=== PATIENT | male | born 1995 | race Caucasian/White ===

== ENCOUNTER 2020-06-14 09:48 | Emergency (ER) | payer OTHER ==
[~2020-06-14] VITALS: Ht 167.6 cm; Wt 63.5 kg
[2020-06-14] MEDS ORDERED: AUGMENTIN 875-1 EACH PO (11:10)
[2020-06-14] MEDS ORDERED: SENNA-DOCUSATE1 EAC1 PO (11:10)
[2020-06-14] MEDS ORDERED: NORCO 5-325 TA1 EAC2 PO (11:10)
[2020-06-14] MEDS ORDERED: IBUPROFEN 600600 M1 PO (11:10)
[2020-06-14 12:28] VITALS: BP 121/69
== END 2020-06-14 12:51 ==
LOC: ER 09:48
DX: S82.51XA Displaced fracture of medial malleolus of right tibia, initial encounter for closed fracture (principal); S01.81XA Laceration without foreign body of other part of head, initial encounter; H72.91 Unspecified perforation of tympanic membrane, right ear; H66.93 Otitis media, unspecified, bilateral; F17.210 Nicotine dependence, cigarettes, uncomplicated; Y04.2XXA Assault by strike against or bumped into by another person, initial encounter; Y93.89 Activity, other specified; Y92.89 Other specified places as the place of occurrence of the external cause; Y99.8 Other external cause status